=== PATIENT | female | born 1935 | race Caucasian/White ===

== ENCOUNTER 2017-06-30 10:30 | Inpatient (IN) | payer MEDICARE ==
[~2017-06-30] VITALS: Ht 157.5 cm; Wt 68.0 kg
[~2017-06-30 10:30] MED LIST: ESCI10TA54 PO; HYDR-3968 PO; LEVO125T PO
[2017-06-30 12:26] LABS: BASOPHILS # (AUTO) 0.1 X10'3 (0-0.2); BASOPHILS % (AUTO) 0.9 % (0-1); EOSINOPHILS # (AUTO) 0.6 X10'3 (0-0.9); EOSINOPHILS % (AUTO) 5.1 % (0-6); LYMPHOCYTES % (AUTO) 17.7 % (21-51); MEAN CORPUSCULAR HEMOGLOBIN 30.5 PG (27.0-31.0); MEAN CORPUSCULAR HGB CONC 34.6 % (33.0-36.5); MEAN PLATELET VOLUME 7.8 FL (7.4-10.4); MONOCYTES # (AUTO) 0.8 X10'3 (0-0.9); NEUTROPHILS # (AUTO) 7.9 X10'3 (1.8-7.7); NEUTROPHILS % (AUTO) 69.3 % (42-75); PRE OP HEMATOCRIT 36.9 % (35.0-45.0); PRE OP HEMOGLOBIN 12.8 g/dL (12.0-16.0); PRE OP PLATELET COUNT 358 X10'3 (140-440)
[2017-06-30 12:47] LABS: ALBUMIN 3.7 G/DL (3.4-5.0); ALKALINE PHOSPHATASE 122 IU/L (46-116); BLOOD UREA NITROGEN 19 MG/DL (7-18); BUN/CREATININE RATIO 23.8 (6.6-38.0); CALCIUM 9.9 MG/DL (8.5-10.1); CHLORIDE 103 MMOL/L (99-107); PRE OP ALT 18 U/L (30-65); PRE OP ANION GAP 9 (8-16); PRE OP AST 17 U/L (10-37); PRE OP BILIRUB, TOTAL 0.3 MG/DL (0.0-1.0); PRE OP GLUCOSE 101 MG/DL (70-104); PRE OP POTASSIUM 4.1 MMOL/L (3.4-5.1); PRE OP SODIUM 140 MMOL/L (135-145); TOTAL CARBON DIOXIDE 27.6 MMOL/L (24-32); TOTAL PROTEIN 7.5 G/DL (6.4-8.2); eGFR 69 ML/MIN
[2017-06-30] MEDS ORDERED: MELA3TAB PO (12:47)
[2017-06-30] MEDS ORDERED: MELO-100 PO (12:47)
[2017-06-30] MEDS ORDERED: HYDR25TA4 PO (12:47)
[2017-06-30] MEDS ORDERED: IRON1TAB93 PO (12:47)
[2017-07-01 11:26] LABS: CLARITY,URINE CLOUDY (Clear); COLOR,URINE YELLOW (Yellow); GLUCOSE, URINE NEGATIVE (Neg); KETONES,URINE NEGATIVE (Neg); NITRITES, URINE NEGATIVE (Neg); OCCULT BLOOD,URINE NEGATIVE (Neg); PROTEIN,URINE NEGATIVE (Neg); UROBILINOGEN,URINE 0.2 E.U/dL (0.2-1.0)
[2017-07-01 11:35] LABS: UA COLLECTION TYPE CLN CATCH MIDSTREAM
[2017-07-01 11:37] LABS: BACTERIA,URINE 4+ /HPF (Neg); RBC,URINE 0-2 /HPF (0-2); SQUAMOUS EPITHELIAL CELL,UR FEW /LPF (FEW); WBC,URINE 30-50 /HPF (0-4)
[2017-07-01 11:38] LABS: MUCUS STRANDS FEW /LPF (Neg)
[2017-07-01 11:40] LABS: LEUKOCYTE ESTERASE ,URINE MODERATE (Neg)
[2017-07-07] MEDS ORDERED: ringers solution, lacted 1,000 ML IV SCH (05:00)
[2017-07-07] MEDS ORDERED: metoclopramide 5 mg/ml inj IV ONE (05:30)
[2017-07-07] MEDS ORDERED: famotidine 20mg tablet PO ONE (05:30)
[2017-07-07] MEDS ORDERED: gabapentin 300mg capsule PO ONE (05:30)
[2017-07-07] MEDS ORDERED: VANCOMYCIN INJ 1000 MG in NORMAL SALINE 250ml IV.SOLN IV ONE (05:30)
[2017-07-07] MEDS ORDERED: acetaminophen 325mg tablet PO ONE (05:30)
[2017-07-07] MEDS ORDERED: ceFAZolin inj. 2,000 MG in normal saline 100ml IV soln 100 ML IV ONE (05:30)
[2017-07-07] MEDS ORDERED: potassium cl 20mEq in 1/2 NS 1,000 ML IV SCH (07:29)
[2017-07-07] MEDS ORDERED: ondansetron/PF 4mg/2ml inj IV PRN (07:30)
[2017-07-07] MEDS ORDERED: magnesium hydroxide 30ml (MOM) UD suspension PO PRN (07:30)
[2017-07-07] MEDS ORDERED: bisacodyl 10mg suppository rectal RC PRN (07:30)
[2017-07-07] MEDS ORDERED: HYDROcodone/acetaminophen 10/325mg tab PO PRN ×2 (07:30)
[2017-07-07] MEDS ORDERED: diphenhydrAMINE 25mg capsule PO PRN ×2 (07:30)
[2017-07-07] MEDS ORDERED: GLUC PO PRN (07:30)
[2017-07-07] MEDS ORDERED: B12 PO PRN (07:30)
[2017-07-07] MEDS ORDERED: acetaminophen 325mg tablet PO PRN (07:30)
[2017-07-07] MEDS ORDERED: IRON CARB PO PRN (07:30)
[2017-07-07] MEDS ORDERED: DSS PO PRN (07:30)
[2017-07-07] MEDS ORDERED: [UNRECOGNIZED DRUG - OTHER] PO PRN (07:30)
[2017-07-07] MEDS ORDERED: MORPHINE 2MG in 2ml NS syringe IV PRN (07:30)
[2017-07-07] MEDS ORDERED: HYDROchlorothiazide 25mg tablet PO SCH (08:00)
[2017-07-07] MEDS ORDERED: multivitamins, therapeutics tablet PO SCH (08:00)
[2017-07-07] MEDS ORDERED: levoTHYROXINE 125mcg tablet PO SCH (08:00)
[2017-07-07] MEDS ORDERED: ascorbic acid 500mg tablet PO SCH (08:00)
[2017-07-07] MEDS ORDERED: clindamycin-Cleocin 900mg/D5W 50 ML IV SCH (08:00)
[2017-07-07] MEDS ORDERED: vancomycin/NS 1 GM ADD-VANTAGE 250 ML IV SCH (08:00)
[2017-07-07] MEDS ORDERED: gabapentin 300mg capsule PO SCH (08:00)
[2017-07-07] MEDS ORDERED: aspirin 325mg tablet PO SCH (08:30)
[2017-07-07] MEDS ORDERED: [UNRECOGNIZED DRUG - REMARK] PO NR (10:00)
[2017-07-07] MEDS ORDERED: sennosides 8.6mg tablet PO SCH (21:00)
[2017-07-07] MEDS ORDERED: Melatonin 3mg tablet PO SCH (21:00)
[2017-07-08] MEDS ORDERED: citalopram 20mg tablet PO SCH (08:00)
== END 2017-07-07 11:00 | disposition home or self-care (01) | DRG 554 ==
LOC: EDSTATUS 10:30 → PAS IN 07-07 09:57 → EDSTATUS 07-07 17:45
PROVIDERS: ADMIT Orthopaedic Surgery; ATTEND Orthopaedic Surgery
DX: M87.051 Idiopathic aseptic necrosis of right femur (principal); E03.9 Hypothyroidism, unspecified; G89.4 Chronic pain syndrome; I10 Essential (primary) hypertension; E66.8 Other obesity; Z96.653 Presence of artificial knee joint, bilateral; F41.9 Anxiety disorder, unspecified; Z88.0 Allergy status to penicillin; Z91.011 Allergy to milk products; Z88.7 Allergy status to serum and vaccine; Z88.8 Allergy status to other drugs, medicaments and biological substances; Z91.018 Allergy to other foods; Z90.710 Acquired absence of both cervix and uterus; Z68.27 Body mass index [BMI] 27.0-27.9, adult
CPT/HCPCS: 36415; 71046; 80053; 81001; 85025; 86885; 86900; 86901; 87070; 87077; 87088; 87186; J0690; J3370; J7030; J7120

== ENCOUNTER 2019-10-28 13:22 | Emergency (ER) | payer MEDICARE ==
[~2019-10-28] VITALS: Ht 149.9 cm; Wt 72.7 kg
[~2019-10-28 13:22] MED LIST changes: -ESCI10TA54 PO; +ESCI10TA61 PO; -HYDR-3968 PO; +HYDR25TA4 PO; +MELA3TAB39 PO
[2019-10-28] MEDS ORDERED: MELO7.5T12 PO (15:28)
[2019-10-28 15:43] VITALS: BP 134/55
== END 2019-10-28 15:40 | disposition home or self-care (01) ==
LOC: ER 13:22
DX: M54.2 Cervicalgia (principal); G89.29 Other chronic pain; F41.9 Anxiety disorder, unspecified; Z90.710 Acquired absence of both cervix and uterus; Z98.890 Other specified postprocedural states; Z88.0 Allergy status to penicillin; Z88.1 Allergy status to other antibiotic agents; Z88.8 Allergy status to other drugs, medicaments and biological substances; Z91.011 Allergy to milk products; Z91.018 Allergy to other foods; Z88.7 Allergy status to serum and vaccine; Z88.6 Allergy status to analgesic agent; Z79.899 Other long term (current) drug therapy
CPT/HCPCS: 72125; 99284

== ENCOUNTER 2024-05-26 10:58 | Inpatient (IN) | payer MEDICARE ==
[2024-05-26] VITALS (12 sets, daily range): BP systolic 78–114; BP diastolic 37–56; PULSE 68–79; RESP 12–24; O2SAT 92–98
[~2024-05-26] VITALS: Ht 152.4 cm; Wt 64.3 kg
[~2024-05-26 10:58] MED LIST changes: +ESCI-8 PO; -ESCI10TA61 PO; +MELO7.5T12 PO
[2024-05-26 11:55] LABS: BASOPHILS % (AUTO) 0 % (0-1); EOSINOPHILS # (AUTO) 8.8 X10'3 (0-0.9); EOSINOPHILS % (AUTO) 22.8 % (0-6); HEMOGLOBIN 10.1 g/dl (12.0-16.0); LYMPHOCYTES # (AUTO) 0.6 X10'3 (1.1-4.8); LYMPHOCYTES % (AUTO) 1.6 % (21-51); MEAN CORPUSCULAR HEMOGLOBIN 29.9 PG (27.0-31.0); MEAN CORPUSCULAR HGB CONC 32.5 g/dL (33.0-36.5); MEAN CORPUSCULAR VOLUME 91.9 FL (78-98); MEAN PLATELET VOLUME 8.2 FL (7.4-10.4); MONOCYTES # (AUTO) 1.2 X10'3 (0-0.9); MONOCYTES % (AUTO) 3.1 % (2-12); NEUTROPHILS # (AUTO) 27.9 X10'3 (1.8-7.7); NEUTROPHILS % (AUTO) 72.5 % (42-75); PLATELET COUNT 107 X10'3 (140-440); RED BLOOD COUNT 3.37 X10'6 (4.20-5.60); RED CELL DISTRIBUTION WIDTH 13.4 % (11.5-14.5)
[2024-05-26 11:58] LABS: WHITE BLOOD COUNT 38.5 X10'3 (4.5-11.0)
[2024-05-26] MEDS: normal saline 1000ml 1,000 ML IV ONE ×2 (12:02→12:04)
[2024-05-26 12:23] LABS: ALBUMIN 1.9 G/DL (3.4-5.0); ANION GAP 16 (8-16); BLOOD UREA NITROGEN 80 MG/DL (7-18); BUN/CREATININE RATIO 24.6 (10.0-20.0); CALCIUM 8.6 MG/DL (8.5-10.1); CHLORIDE 101 MMOL/L (99-107); CREATININE 3.25 MG/DL (0.40-0.90); GLUCOSE 68 MG/DL (70-104); POTASSIUM 3.2 MMOL/L (3.5-5.1); PRO BRAIN NATRIURETIC PEPTIDE 18294 PG/ML (0-450); SODIUM 138 MMOL/L (135-145); TOTAL CARBON DIOXIDE 21.3 MMOL/L (24-32); eCRCL 10 ML/MIN; eGFR 13 ML/MIN
[2024-05-26] MEDS: levoFLOXACIN-Levaquin 500mg/D5 100 ML IV SCH (12:25)
[2024-05-26] MEDS: metroNIDAZOLE-Flagyl 500mg/NS 100 ML IV STA (12:39)
[2024-05-26 12:48] LABS: PLATELET ESTIMATE DECREASED; TOTAL CELLS COUNTED 100
[2024-05-26 12:49] LABS: TOXIC GRANULATION 1+; TOXIC VACUOLATION FEW
[2024-05-26] MEDS ORDERED: NORepinephrine 32mg/250mL bag 250 ML IV SCH (13:20)
[2024-05-26] MEDS: NORepinephrine 8mg/ 250ml NS 250 ML IV SCH (13:55)
[2024-05-26 14:32] LABS: BILIRUBIN,URINE MODERATE (Neg); CLARITY,URINE CLOUDY (Clear); COLOR,URINE YELLOW (Yellow); GLUCOSE, URINE NEGATIVE (Neg); KETONES,URINE TRACE mg/dl (Neg); LEUKOCYTE ESTERASE ,URINE MODERATE (Neg); NITRITES, URINE POSITIVE (Neg); OCCULT BLOOD,URINE LARGE (Neg); PROTEIN,URINE >=300 mg/dl (Neg); UROBILINOGEN,URINE 0.2 E.U/dL (0.2-1.0)
[2024-05-26 14:40] LABS: UA COLLECTION TYPE STRAIGHT CATH
[2024-05-26 14:41] LABS: BACTERIA,URINE 4+ /HPF (Neg); RBC,URINE 20-50 /HPF (0-2); WBC,URINE 30-50 /HPF (0-4)
[2024-05-26 14:42] LABS: AMORPHOUS URATES 1+; MUCUS STRANDS FEW /LPF (Neg); RENAL CELLS, URINE FEW /HPF; SQUAMOUS EPITHELIAL CELL,UR FEW /LPF (FEW); TRANSITIONAL EPI CELLS,URINE FEW /HPF
[2024-05-26] MEDS ORDERED: morphine 4 MG/ML inj SYRINge IV PRN (15:55)
[2024-05-26] MEDS ORDERED: ondansetron/PF 4mg/2ml inj IV PRN (15:55)
[2024-05-26] MEDS ORDERED: acetaminophen 325mg tablet PO PRN (15:55)
[2024-05-26] MEDS ORDERED: magnesium hydroxide 30ml (MOM) UD suspension PO PRN (15:55)
[2024-05-26 16:43] LABS: THYROID STIMULATING HORMONE 3.89 ulU/ml (0.34-4.50)
[2024-05-26] MEDS: aztreonam inj. 1,000 MG in normal saline 100ml IV soln 100 ML IV SCH (17:20)
[2024-05-26] MEDS: normal saline 1000ml 1,000 ML IV SCH (17:20)
[2024-05-26] MEDS: NORMAL SALINE IV ONE (17:20)
[2024-05-26] MEDS: TOBRAMYCIN IV ONE (17:20)
[2024-05-26] MEDS ORDERED: ZOLP10TA PO (18:03)
[2024-05-26] MEDS ORDERED: SERT-432 PO (18:03)
[2024-05-26] MEDS ORDERED: GABA300C PO (18:03)
[2024-05-26] MEDS ORDERED: ESZO3TAB40 PO (18:03)
[2024-05-26] MEDS ORDERED: LEVO75TA7 PO (18:03)
[2024-05-26 19:16] LABS: ALANINE AMINOTRANSFERASE 330 U/L (12-78); ALBUMIN 1.7 G/DL (3.4-5.0); ALBUMIN/GLOBULIN RATIO 0.4 (1.1-1.5); ALKALINE PHOSPHATASE 440 IU/L (46-116); ANION GAP 14 (8-16); BILIRUBIN,TOTAL 0.5 MG/DL (0.1-1.0); BLOOD UREA NITROGEN 75 MG/DL (7-18); CALCIUM 8.1 MG/DL (8.5-10.1); CHLORIDE 104 MMOL/L (99-107); GLUCOSE 131 MG/DL (70-104); SODIUM 137 MMOL/L (135-145); TOTAL PROTEIN 5.7 G/DL (6.4-8.2); eCRCL 9 ML/MIN; eGFR 15 ML/MIN
[2024-05-26 19:27] LABS: ASPARTATE AMINO TRANSFERASE 440 U/L (10-37); POTASSIUM 3.7 MMOL/L (3.5-5.1)
[2024-05-26] MEDS: heparin, porcine 5000 units/ml vial SQ SCH (20:21)
[2024-05-26 20:23] LABS: APTT 32 SECONDS (22-32); INR 1.1 INR; PROTHROMBIN TIME 11.5 SECONDS (9.0-12.0)
[2024-05-26] MEDS: normal saline 500ml IV soln 500 ML IV ONE (21:35)
[2024-05-27] VITALS (14 sets, daily range): BP systolic 87–119; BP diastolic 40–59; PULSE 58–73; RESP 13–21; TEMP 96.8–97.8; O2SAT 92–98
[2024-05-27 04:05] LABS: MEAN CORPUSCULAR HEMOGLOBIN 29.9 PG (27.0-31.0); MEAN CORPUSCULAR VOLUME 91.4 FL (78-98); RED CELL DISTRIBUTION WIDTH 13.8 % (11.5-14.5)
[2024-05-27 04:08] LABS: BASOPHILS % (AUTO) 0.1 % (0-1); EOSINOPHILS # (AUTO) 2.5 X10'3 (0-0.9); EOSINOPHILS % (AUTO) 4.5 % (0-6); HEMATOCRIT 29.3 % (35.0-45.0); HEMOGLOBIN 9.6 g/dl (12.0-16.0); LYMPHOCYTES % (AUTO) 3.6 % (21-51); MEAN CORPUSCULAR HGB CONC 32.8 g/dL (33.0-36.5); MEAN PLATELET VOLUME 8.3 FL (7.4-10.4); MONOCYTES # (AUTO) 1.5 X10'3 (0-0.9); MONOCYTES % (AUTO) 2.7 % (2-12); NEUTROPHILS # (AUTO) 50.6 X10'3 (1.8-7.7); NEUTROPHILS % (AUTO) 89.1 % (42-75); PLATELET COUNT 112 X10'3 (140-440)
[2024-05-27 04:21] LABS: WHITE BLOOD COUNT 56.8 X10'3 (4.5-11.0)
[2024-05-27 04:25] LABS: ALBUMIN 1.7 G/DL (3.4-5.0); ANION GAP 12 (8-16); BLOOD UREA NITROGEN 71 MG/DL (7-18); CALCIUM 8.1 MG/DL (8.5-10.1); CHLORIDE 105 MMOL/L (99-107); CREATININE 2.73 MG/DL (0.40-0.90); GLUCOSE 87 MG/DL (70-104); POTASSIUM 3.6 MMOL/L (3.5-5.1); SODIUM 139 MMOL/L (135-145); THYROID STIMULATING HORMONE 3.28 ulU/ml (0.34-4.50); TOTAL CARBON DIOXIDE 21.8 MMOL/L (24-32); eCRCL 10 ML/MIN; eGFR 16 ML/MIN
[2024-05-27 04:34] LABS: TOTAL CELLS COUNTED 100
[2024-05-27 04:36] LABS: TOXIC GRANULATION 1+; TOXIC VACUOLATION FEW
[2024-05-27] MEDS ORDERED: levoTHYROXINE 75mcg tablet PO SCH (08:00)
[2024-05-27 08:52] LABS: ALANINE AMINOTRANSFERASE 251 U/L (12-78); ALBUMIN 1.7 G/DL (3.4-5.0); ALBUMIN/GLOBULIN RATIO 0.4 (1.1-1.5); ALKALINE PHOSPHATASE 382 IU/L (46-116); ASPARTATE AMINO TRANSFERASE 251 U/L (10-37); BILIRUBIN,DIRECT 0.2 MG/DL (0-0.3); BILIRUBIN,TOTAL 0.4 MG/DL (0.1-1.0); TOTAL PROTEIN 5.7 G/DL (6.4-8.2)
[2024-05-27] MEDS: levoTHYROXINE 75mcg tablet PO SCH (09:31)
[2024-05-27] MEDS: levoFLOXACIN 500mg tablet PO SCH (09:31)
[2024-05-27] MEDS: pantoprazole 40mg Tablet.DR PO SCH (09:31)
[2024-05-27] MEDS: acetaminophen 325mg tablet PO PRN (10:40)
[2024-05-27] MEDS ORDERED: ringers solution, lacted 1,000 ML IV SCH (12:30)
[2024-05-27] MEDS: ringers solution, lacted 1,000 ML IV SCH (14:09)
[2024-05-27] MEDS: normal saline 1000ml 1,000 ML IV ONE (16:25)
[2024-05-27] MEDS: normal saline 1000ml 1,000 ML IV SCH (16:26)
[2024-05-27] MEDS: metroNIDAZOLE-Flagyl 500mg/NS 100 ML IV SCH (16:26)
[2024-05-27] MEDS: lactobacillus rhamnosus 10,000 MMU CELLS/CAPSULE PO SCH (19:20)
[2024-05-28] VITALS (8 sets, daily range): BP systolic 112–134; BP diastolic 40–69; PULSE 59–71; RESP 12–22; TEMP 96.8–98.1; O2SAT 96–98
[2024-05-28 06:24] LABS: BASOPHILS % (AUTO) 0.1 % (0-1); EOSINOPHILS # (AUTO) 0.2 X10'3 (0-0.9); EOSINOPHILS % (AUTO) 0.4 % (0-6); HEMATOCRIT 29.6 % (35.0-45.0); HEMOGLOBIN 9.6 g/dl (12.0-16.0); LYMPHOCYTES # (AUTO) 2.2 X10'3 (1.1-4.8); LYMPHOCYTES % (AUTO) 5.4 % (21-51); MEAN CORPUSCULAR HEMOGLOBIN 29.6 PG (27.0-31.0); MEAN CORPUSCULAR HGB CONC 32.6 g/dL (33.0-36.5); MEAN CORPUSCULAR VOLUME 90.8 FL (78-98); MEAN PLATELET VOLUME 8.2 FL (7.4-10.4); MONOCYTES % (AUTO) 2.4 % (2-12); NEUTROPHILS # (AUTO) 38.2 X10'3 (1.8-7.7); NEUTROPHILS % (AUTO) 91.7 % (42-75); PLATELET COUNT 124 X10'3 (140-440); RED BLOOD COUNT 3.26 X10'6 (4.20-5.60); RED CELL DISTRIBUTION WIDTH 13.7 % (11.5-14.5)
[2024-05-28 06:36] LABS: ALBUMIN 1.6 G/DL (3.4-5.0); ANION GAP 13 (8-16); BLOOD UREA NITROGEN 64 MG/DL (7-18); BUN/CREATININE RATIO 33.9 (10.0-20.0); CALCIUM 7.9 MG/DL (8.5-10.1); CHLORIDE 110 MMOL/L (99-107); CREATININE 1.89 MG/DL (0.40-0.90); GLUCOSE 76 MG/DL (70-104); POTASSIUM 3.5 MMOL/L (3.5-5.1); SODIUM 142 MMOL/L (135-145); eCRCL 15 ML/MIN; eGFR 25 ML/MIN
[2024-05-28 06:39] LABS: WHITE BLOOD COUNT 41.6 X10'3 (4.5-11.0)
[2024-05-28 06:53] LABS: FERRITIN 455 NG/ML (8-252)
[2024-05-28 07:00] LABS: PLATELET ESTIMATE DECREASED; TOTAL CELLS COUNTED 100
[2024-05-28 07:08] LABS: % IRON SATURATION 55 % (11-46); IRON 82 UG/DL (49-151); TOTAL IRON BINDING CAPACITY 150 UG/DL (259-388)
[2024-05-28] MEDS ORDERED: cefepime 1GM in D5W 50mL 50 ML IV SCH (08:00)
[2024-05-28] MEDS ORDERED: CefTRIAXone 2gm/D5W 50ml BAG 50 ML IV SCH (08:00)
[2024-05-28] MEDS ORDERED: levoFLOXACIN-Levaquin 750MG/D5 150 ML IV SCH (08:00)
[2024-05-28 08:52] LABS: ALANINE AMINOTRANSFERASE 145 U/L (12-78); ALBUMIN 1.7 G/DL (3.4-5.0); ALBUMIN/GLOBULIN RATIO 0.4 (1.1-1.5); ALKALINE PHOSPHATASE 304 IU/L (46-116); ASPARTATE AMINO TRANSFERASE 76 U/L (10-37); BILIRUBIN,DIRECT 0.2 MG/DL (0-0.3); BILIRUBIN,TOTAL 0.3 MG/DL (0.1-1.0); TOTAL PROTEIN 5.6 G/DL (6.4-8.2)
[2024-05-28] MEDS: CefTRIAXone 2gm/D5W 50ml BAG 50 ML IV SCH (09:21)
[2024-05-28] MEDS: ringers solution, lacted 1,000 ML IV SCH (09:28)
[2024-05-29] VITALS (8 sets, daily range): BP systolic 121–143; BP diastolic 41–63; PULSE 63–70; RESP 13–22; TEMP 97–98.1; O2SAT 96–98
[2024-05-29 06:28] LABS: BASOPHILS # (AUTO) 0.1 X10'3 (0-0.2); BASOPHILS % (AUTO) 0.2 % (0-1); EOSINOPHILS # (AUTO) 0.1 X10'3 (0-0.9); EOSINOPHILS % (AUTO) 0.3 % (0-6); HEMATOCRIT 29.7 % (35.0-45.0); HEMOGLOBIN 9.7 g/dl (12.0-16.0); LYMPHOCYTES # (AUTO) 2.1 X10'3 (1.1-4.8); MEAN CORPUSCULAR HEMOGLOBIN 29.4 PG (27.0-31.0); MEAN CORPUSCULAR HGB CONC 32.8 g/dL (33.0-36.5); MEAN CORPUSCULAR VOLUME 89.8 FL (78-98); MEAN PLATELET VOLUME 8.5 FL (7.4-10.4); MONOCYTES # (AUTO) 1.3 X10'3 (0-0.9); MONOCYTES % (AUTO) 3.6 % (2-12); NEUTROPHILS # (AUTO) 31.8 X10'3 (1.8-7.7); NEUTROPHILS % (AUTO) 89.9 % (42-75); PLATELET COUNT 135 X10'3 (140-440); RED CELL DISTRIBUTION WIDTH 13.7 % (11.5-14.5)
[2024-05-29 06:37] LABS: WHITE BLOOD COUNT 35.4 X10'3 (4.5-11.0)
[2024-05-29 06:44] LABS: ALANINE AMINOTRANSFERASE 92 U/L (12-78); ALBUMIN 1.6 G/DL (3.4-5.0); ALBUMIN/GLOBULIN RATIO 0.4 (1.1-1.5); ALKALINE PHOSPHATASE 236 IU/L (46-116); ANION GAP 13 (8-16); ASPARTATE AMINO TRANSFERASE 27 U/L (10-37); BILIRUBIN,TOTAL 0.4 MG/DL (0.1-1.0); BLOOD UREA NITROGEN 47 MG/DL (7-18); BUN/CREATININE RATIO 32.4 (10.0-20.0); CALCIUM 8.2 MG/DL (8.5-10.1); CHLORIDE 112 MMOL/L (99-107); CREATININE 1.45 MG/DL (0.40-0.90); GLUCOSE 103 MG/DL (70-104); POTASSIUM 3.3 MMOL/L (3.5-5.1); SODIUM 145 MMOL/L (135-145); TOTAL CARBON DIOXIDE 20.5 MMOL/L (24-32); TOTAL PROTEIN 5.3 G/DL (6.4-8.2); eCRCL 19 ML/MIN; eGFR 34 ML/MIN
[2024-05-29 07:18] LABS: TOTAL CELLS COUNTED 100
[2024-05-29 07:19] LABS: PLATELET ESTIMATE DECREASED
[2024-05-29] MEDS ORDERED: potassium Cl 40MEQ/1/2NS 520ml 520 ML IV PRN (07:45)
[2024-05-29] MEDS ORDERED: potassium Cl 20 mEq SR tablet PO PRN (07:45)
[2024-05-29] MEDS: morphine 2 MG/ML inj. syringe IV PRN (07:52)
[2024-05-29] MEDS: potassium Cl 20 mEq SR tablet PO PRN (07:54)
[2024-05-30] VITALS (7 sets, daily range): BP systolic 116–158; BP diastolic 53–95; PULSE 65–77; RESP 14–19; TEMP 97.2–98.8; O2SAT 97–99
[2024-05-30] MEDS: benzonatate 100mg capsule PO PRN (04:26)
[2024-05-30 10:12] LABS: BASOPHILS # (AUTO) 0.1 X10'3 (0-0.2); BASOPHILS % (AUTO) 0.2 % (0-1); EOSINOPHILS # (AUTO) 0.2 X10'3 (0-0.9); EOSINOPHILS % (AUTO) 0.9 % (0-6); HEMATOCRIT 29.8 % (35.0-45.0); HEMOGLOBIN 9.9 g/dl (12.0-16.0); LYMPHOCYTES # (AUTO) 1.9 X10'3 (1.1-4.8); LYMPHOCYTES % (AUTO) 7.3 % (21-51); MEAN CORPUSCULAR HEMOGLOBIN 30.1 PG (27.0-31.0); MEAN CORPUSCULAR HGB CONC 33.4 g/dL (33.0-36.5); MEAN PLATELET VOLUME 8.1 FL (7.4-10.4); MONOCYTES # (AUTO) 1.2 X10'3 (0-0.9); MONOCYTES % (AUTO) 4.6 % (2-12); NEUTROPHILS # (AUTO) 23.1 X10'3 (1.8-7.7); PLATELET COUNT 164 X10'3 (140-440); RED BLOOD COUNT 3.31 X10'6 (4.20-5.60); RED CELL DISTRIBUTION WIDTH 13.5 % (11.5-14.5)
[2024-05-30 10:18] LABS: WHITE BLOOD COUNT 26.6 X10'3 (4.5-11.0)
[2024-05-30] MEDS: docusate sod 100mg capsule PO SCH (10:20)
[2024-05-30 10:35] LABS: ALANINE AMINOTRANSFERASE 62 U/L (12-78); ALBUMIN 1.7 G/DL (3.4-5.0); ALBUMIN/GLOBULIN RATIO 0.4 (1.1-1.5); ALKALINE PHOSPHATASE 194 IU/L (46-116); ANION GAP 7 (8-16); ASPARTATE AMINO TRANSFERASE 20 U/L (10-37); BILIRUBIN,TOTAL 0.4 MG/DL (0.1-1.0); BLOOD UREA NITROGEN 33 MG/DL (7-18); BUN/CREATININE RATIO 28.7 (10.0-20.0); CALCIUM 8.3 MG/DL (8.5-10.1); CHLORIDE 112 MMOL/L (99-107); CREATININE 1.15 MG/DL (0.40-0.90); GLUCOSE 97 MG/DL (70-104); POTASSIUM 4.4 MMOL/L (3.5-5.1); SODIUM 142 MMOL/L (135-145); TOTAL CARBON DIOXIDE 22.7 MMOL/L (24-32); TOTAL PROTEIN 5.5 G/DL (6.4-8.2); eCRCL 24 ML/MIN; eGFR 45 ML/MIN
[2024-05-30 10:40] LABS: TOTAL CELLS COUNTED 100
[2024-05-30 10:41] LABS: PLATELET ESTIMATE NORMAL
[2024-05-31] VITALS (8 sets, daily range): BP systolic 139–171; BP diastolic 54–66; PULSE 62–84; RESP 13–19; TEMP 97–98.1; O2SAT 91–98
[2024-05-31] MEDS: aspirin 81mg, enteric-coated 1 TAB TABLET.DR PO SCH (09:13)
[2024-05-31 09:15] LABS: BASOPHILS # (AUTO) 0.1 X10'3 (0-0.2); BASOPHILS % (AUTO) 0.3 % (0-1); EOSINOPHILS # (AUTO) 0.3 X10'3 (0-0.9); EOSINOPHILS % (AUTO) 1.2 % (0-6); HEMATOCRIT 31.5 % (35.0-45.0); HEMOGLOBIN 10.4 g/dl (12.0-16.0); LYMPHOCYTES # (AUTO) 2.7 X10'3 (1.1-4.8); LYMPHOCYTES % (AUTO) 10.7 % (21-51); MEAN CORPUSCULAR HEMOGLOBIN 29.7 PG (27.0-31.0); MEAN CORPUSCULAR HGB CONC 32.9 g/dL (33.0-36.5); MEAN CORPUSCULAR VOLUME 90.3 FL (78-98); MEAN PLATELET VOLUME 7.9 FL (7.4-10.4); MONOCYTES # (AUTO) 1.6 X10'3 (0-0.9); MONOCYTES % (AUTO) 6.3 % (2-12); NEUTROPHILS # (AUTO) 20.9 X10'3 (1.8-7.7); NEUTROPHILS % (AUTO) 81.5 % (42-75); PLATELET COUNT 236 X10'3 (140-440); RED BLOOD COUNT 3.49 X10'6 (4.20-5.60); RED CELL DISTRIBUTION WIDTH 13.4 % (11.5-14.5)
[2024-05-31 09:21] LABS: WHITE BLOOD COUNT 25.7 X10'3 (4.5-11.0)
[2024-05-31 09:37] LABS: ALANINE AMINOTRANSFERASE 49 U/L (12-78); ALBUMIN 2.1 G/DL (3.4-5.0); ALBUMIN/GLOBULIN RATIO 0.5 (1.1-1.5); ALKALINE PHOSPHATASE 188 IU/L (46-116); ANION GAP 9 (8-16); ASPARTATE AMINO TRANSFERASE 21 U/L (10-37); BILIRUBIN,TOTAL 0.6 MG/DL (0.1-1.0); BLOOD UREA NITROGEN 24 MG/DL (7-18); CALCIUM 8.6 MG/DL (8.5-10.1); CHLORIDE 109 MMOL/L (99-107); CREATININE 0.96 MG/DL (0.40-0.90); GLUCOSE 97 MG/DL (70-104); POTASSIUM 4.1 MMOL/L (3.5-5.1); SODIUM 140 MMOL/L (135-145); TOTAL CARBON DIOXIDE 22.3 MMOL/L (24-32); TOTAL PROTEIN 6.6 G/DL (6.4-8.2); eCRCL 29 ML/MIN; eGFR 55 ML/MIN
[2024-05-31 09:58] LABS: HEMOGLOBIN A1C 5.2 % (4.5-6.2)
[2024-05-31] MEDS: amLODIPine 5mg tablet PO SCH (12:26)
[2024-05-31] MEDS ORDERED: iohexol 350MG/ML 100ml bottle IV ONE (14:51)
[2024-05-31] MEDS ORDERED: iohexol 350 MG/ML 50ML vial IV ONE (14:51)
[2024-05-31] MEDS: lactose-reduced food (Ensure Enlive) - 237ml bottle PO SCH (17:00)
[2024-05-31] MEDS: ringers solution, lacted 1,000 ML IV ONE (17:56)
[2024-05-31] MEDS: bisacodyl 10mg suppository rectal RC STA (17:56)
[2024-05-31] MEDS: gabapentin 300mg capsule PO SCH (20:51)
[2024-05-31] MEDS: zolpidem 5mg tablet PO SCH (20:52)
[2024-06-01 02:00] VITALS: BP 137/48; PULSE 74; RESP 15; TEMP 98.1; O2SAT 96
[2024-06-01 06:00] VITALS: BP 146/62; PULSE 71; RESP 19; TEMP 97.5; O2SAT 97
[2024-06-01 07:28] LABS: BASOPHILS # (AUTO) 0.2 X10'3 (0-0.2); EOSINOPHILS # (AUTO) 0.4 X10'3 (0-0.9); EOSINOPHILS % (AUTO) 2.1 % (0-6); HEMATOCRIT 30.1 % (35.0-45.0); HEMOGLOBIN 9.8 g/dl (12.0-16.0); MEAN CORPUSCULAR HEMOGLOBIN 29.8 PG (27.0-31.0); MEAN CORPUSCULAR HGB CONC 32.6 g/dL (33.0-36.5); MEAN CORPUSCULAR VOLUME 91.2 FL (78-98); MEAN PLATELET VOLUME 8.1 FL (7.4-10.4); MONOCYTES # (AUTO) 1.2 X10'3 (0-0.9); MONOCYTES % (AUTO) 5.8 % (2-12); NEUTROPHILS # (AUTO) 16.4 X10'3 (1.8-7.7); NEUTROPHILS % (AUTO) 77.1 % (42-75); PLATELET COUNT 267 X10'3 (140-440); RED CELL DISTRIBUTION WIDTH 13.5 % (11.5-14.5); WHITE BLOOD COUNT 21.3 X10'3 (4.5-11.0)
[2024-06-01] MEDS: sertraline 25mg tablet PO SCH (07:35)
[2024-06-01 08:07] LABS: ALANINE AMINOTRANSFERASE 38 U/L (12-78); ALBUMIN/GLOBULIN RATIO 0.5 (1.1-1.5); ALKALINE PHOSPHATASE 155 IU/L (46-116); ANION GAP 7 (8-16); ASPARTATE AMINO TRANSFERASE 19 U/L (10-37); BILIRUBIN,TOTAL 0.2 MG/DL (0.1-1.0); BLOOD UREA NITROGEN 17 MG/DL (7-18); BUN/CREATININE RATIO 19.3 (10.0-20.0); CALCIUM 8.3 MG/DL (8.5-10.1); CHLORIDE 108 MMOL/L (99-107); CREATININE 0.88 MG/DL (0.40-0.90); GLUCOSE 80 MG/DL (70-104); POTASSIUM 3.9 MMOL/L (3.5-5.1); SODIUM 140 MMOL/L (135-145); TOTAL CARBON DIOXIDE 25.4 MMOL/L (24-32); eCRCL 32 ML/MIN; eGFR 61 ML/MIN
[2024-06-01 09:00] LABS: PLATELET ESTIMATE NORMAL; TOTAL CELLS COUNTED 100
[2024-06-01 11:49] VITALS: BP 128/54; PULSE 74; RESP 18; TEMP 98.1; O2SAT 95
[2024-06-01] MEDS: LidoCAINE 2% Topical Jelly 11mL syringe (UROJET) TOP ONE (15:54)
[2024-06-02 05:18] LABS: FOLATE SERUM(FOLIC) 19.9 ng/mL (>3.0)
== END 2024-06-01 12:45 | DRG 871 ==
LOC: ER 10:58 → ED HOLD 15:59 → CICU 2S 19:15 → PCU 3S 05-27 11:05
PROVIDERS: ADMIT Internal Medicine Critical Care Medicine; ATTEND Internal Medicine Critical Care Medicine
PROC: B4201ZZ Computerized Tomography (CT Scan) of Abdominal Aorta using Low Osmolar Contrast (ICD-10-PCS; principal; 2024-05-31)
PROC: B4241ZZ Computerized Tomography (CT Scan) of Superior Mesenteric Artery using Low Osmolar Contrast (ICD-10-PCS; 2024-05-31)
PROC: B4281ZZ Computerized Tomography (CT Scan) of Bilateral Renal Arteries using Low Osmolar Contrast (ICD-10-PCS; 2024-05-31)
PROC: B42C1ZZ Computerized Tomography (CT Scan) of Pelvic Arteries using Low Osmolar Contrast (ICD-10-PCS; 2024-05-31)
PROC: B42H1ZZ Computerized Tomography (CT Scan) of Bilateral Lower Extremity Arteries using Low Osmolar Contrast (ICD-10-PCS; 2024-05-31)
PROC: B4211ZZ Computerized Tomography (CT Scan) of Celiac Artery using Low Osmolar Contrast (ICD-10-PCS; 2024-05-31)
PROC: B42H1ZZ Computerized Tomography (CT Scan) of Bilateral Lower Extremity Arteries using Low Osmolar Contrast (ICD-10-PCS; 2024-05-31)
DX: A41.9 Sepsis, unspecified organism (principal); G93.41 Metabolic encephalopathy; R65.21 Severe sepsis with septic shock; N17.0 Acute kidney failure with tubular necrosis; E87.20 Acidosis, unspecified; N13.6 Pyonephrosis; Z66 Do not resuscitate; E03.9 Hypothyroidism, unspecified; Z20.822 Contact with and (suspected) exposure to COVID-19; N18.9 Chronic kidney disease, unspecified; E86.0 Dehydration; F41.9 Anxiety disorder, unspecified; E87.6 Hypokalemia; R74.01 Elevation of levels of liver transaminase levels; D69.6 Thrombocytopenia, unspecified; D64.9 Anemia, unspecified; Z90.710 Acquired absence of both cervix and uterus; Z88.0 Allergy status to penicillin; Z88.1 Allergy status to other antibiotic agents; Z91.011 Allergy to milk products; Z88.7 Allergy status to serum and vaccine; Z88.8 Allergy status to other drugs, medicaments and biological substances; Z91.09 Other allergy status, other than to drugs and biological substances; F03.90 Unspecified dementia, unspecified severity, without behavioral disturbance, psychotic disturbance, mood disturbance, and anxiety
CPT/HCPCS: 36415; 70450; 71045; 75635; 76770; 80048; 80053; 80076; 81001; 82607; 82728; 82746; 82948; 83036; 83540; 83550; 83605; 83880; 84145; 84443; 85007; 85025; 85610; 85730; 87040; 87077; 87081; 87088; 87186; 87502; 87503; 87811; 93005; 93306; 93922; 93926; 96365; 96367; 96368; 97110; 97116; 97162; 97530; 97535; 99285; A4314; A4338; A4353; A4615; A6213; C1758; G0378; J0696; J1644; J1956; J2270; J3260; J3490; J7030; J7040; J7120; J7121; Q9967